=== PATIENT | female | born 1985 | race Caucasian/White ===

== ENCOUNTER 2017-12-26 00:01 | Outpatient (POV) | END 2017-12-26 17:00 | LOC: OUTPT 00:01 | PROVIDERS: ATTEND Otolaryngology | DX: H66.90 Otitis media, unspecified, unspecified ear (principal) ==

== ENCOUNTER 2017-12-27 09:59 | Outpatient (CLI) ==
--- NOTE | 2017-12-27 11:54 | DI ---
EXAM: Three views of the paranasal sinuses HISTORY: Chronic sinusitis. COMPARISON: CT sinus 12/27/2017 same day FINDINGS: Nasal septum is approximately midline. There is questionable thickening of the mucosa in t he bilateral maxillary sinuses. The frontal sinuses appear clear. The osseous structures are unrema rkable. IMPRESSION: Questionable maxillary sinus disease.
--- NOTE | 2017-12-27 11:55 | CT ---
Exam: CT of the sinuses without intravenous contrast. Comparison: None available. Reason for exam: Chronic sinusitis. FINDINGS: No displaced facial fractures are seen. No inflammatory changes are seen in the intracona l or extraconal spaces. The imaged portions of the calvarium appear intact without depressed fractur e. There is mucosal thickening in both maxillary sinuses. There is mild mucosal thickening in the e thmoid sinuses. The frontal sinuses and mastoid air cells are normally pneumatized. Impression: Mucosal thickening with inflammatory changes in both maxillary sinuses. Mild mucosal thickening is s een in the ethmoid sinuses. Imaging findings are most consistent with chronic sinus disease.
== END 2017-12-27 10:00 | disposition home or self-care (01) ==
LOC: RAD 09:59
PROVIDERS: ATTEND Otolaryngology
DX: J32.9 Chronic sinusitis, unspecified (principal)

== ENCOUNTER 2018-01-10 09:58 | Emergency (ER) ==
[2018-01-10 10:02] VITALS: BP 126/77; TEMP 99.1; BMI 32.5
--- NOTE | 2018-01-10 11:42 | ED.PDOC ---
General ED Provider: Dr. DOT BARAKAT Chief Complaint: Headache Stated Complaint: States has been bothered with sinus congestion and sore throat for past week and saw PCP for sinusitis several weeks ago. Was prescribed Augmentin for 10 days. Recently has taken OTC cough and cold medication 2 nights ago and yesterday felt very strange all day, feeling out of it /Developed headache yesterday evening and feels severe pressure sensation. No LOC, visual problems or emesis. Has ringing in ears. Time Seen by Physician: 11:25 Mode of Arrival: Walk-In Information Source: Patient Exam Limitations: No limitations Primary Care Provider: ARNEL SALCEDO Nursing and Triage Documentation Reviewed and Agree: Yes Reviewed sepsis parameters & appropriate labs ordered?: Yes System Inflammatory Response Syndrome: Not Applicable Sepsis Protocol: For patient's 13 years and over: Temp is 96.8 and below OR 101 and greater Pulse >90 BPM Resp >20/minute Acutely Altered Mental Status Are patient's symptoms suggestive of a new infection, such as: -Pneumonia -Skin, Soft Tissue -Endocarditis -UTI -Bone, Joint Infection -Implantable Device -Acute Abdominal Infection -Wound Infection -Meningitis -Blood Stream Catheter Infection -Unknown System Inflammatory Response Syndrome: Not Applicable Neurological Complaint Exam - Headache Complaint/Exam Onset: Gradual Duration: 24 hrs Symptoms Are: Still present Timing: Constant Episodes Lasting: Hours Worst Headache Ever: Yes Initial Severity: Moderate Current Severity: Severe Location: Diffuse, Right, Left, Frontal, Temporal, Occipital Character: Reports: Throbbing, Pressure, Migraine Aggravating: Reports: Position change, Bright lights Alleviating: Reports: Position change Associated Signs and Symptoms: Reports: Dizziness, Nausea, Sinus pressure Related Surgical History: Reports: None SAH Risk Factors: Reports: None Meningitis Risk Factors: Reports: None SDH Risk Factors: Reports: None Normal Head CT Within Last 12 Months: No Sinus Tenderness: Present: Maxillary, Frontal TMJ Tenderness: Present: None ROM Limited In: No Limitiations Focal Weakness: Present: None Focal Sensory Loss: Present: None Gait: Normal Nystagmus Present: No Gag Reflex Present: No Differential Diagnoses: Migraine, Subarachnoid Hemorrhage, Tension Headache, Viral Syndrome Review of Systems - Review Of Systems Constitutional: Reports: No symptoms Eyes: Reports: No symptoms Ears, Nose, Mouth, Throat: Reports: Ear pain (EAR FULLNESS), Throat pain (EAR AND HEAD FULLNESS) Respiratory: Reports: No symptoms, Cough Cardiac: Reports: No symptoms GI: Reports: No symptoms : Reports: No symptoms Musculoskeletal: Reports: No symptoms Skin: Reports: No symptoms Neurological: Reports: No symptoms Endocrine: Reports: No symptoms Hematologic/Lymphatic: Reports: No symptoms All Other Systems: Reviewed and Negative Past Medical History - Past Medical History Endocrine: Reports: None Cardiovascular: Reports: None Respiratory: Reports: None Hematological: Reports: None Gastrointestinal: Reports: None Genitourinary: Reports: None Neuro/Psych: Reports: None Musculoskeletal: Reports: None Cancer: Reports: None Last Menstrual Period: 11/29/17 PATIENT HAS IRREGULAR PERIODS - Surgical History General Surgical History: Reports: None - Family History Family History: Reports: None - Social History Smoking Status: Never smoker Hx Substance Use: No Alcohol Screening: None - Immunizations Tetanus Shot up to Date: Yes Physical Exam - Physical Exam Appearance: Ill-appearing Ill-appearing: Mild Pain Distress: Moderate Eyes: GAUDENCIO, EOMI, Conjunctiva clear ENT: Ears normal, Nose normal, Oropharynx normal (MILD ERYTHREMA), Erythema Neck: Supple (SOFT, NO NUCHAL RIGIDITY) Respiratory: Airway patent, Breath sounds clear Cardiovascular: RRR, Pulses normal, No rub, No murmur GI/: Soft, Nontender, No masses, Bowel sounds normal Musculoskeletal: Normal strength, ROM intact, No edema Skin: Warm, Dry, Normal color Neurological: Sensation intact, Motor intact, Alert, Oriented Psychiatric: Affect appropriate, Mood appropriate Re-Evaluation - Re-Evaluation Time of Re-Evaluation: 12:15 Status: Improved Vital Signs Stable: Yes Pain Level: 5/10 Appearance: NAD Lungs: Clear Skin: Warm and Dry Neuro: Other (Neck soft supple; no nuchal rigidity/ neg kernig's) CV: RRR Additional Comments: Lab/imaging reviewed. - Re-Evaluation Time of Re-Evaluation: 15:05 (Has been resting. Feeling better until sitting up then has recurrent CENTENO, dizziness, nausea and visual hazziness) Vital Signs Stable: Yes Appearance: NAD Skin: Warm and Dry Neuro: Alert and Oriented X3 CV: Other (Neck soft supple; neg nuchal tightness;/ordering IV Promethazine, CT angiogram to R/O vascular abnormality) Critical Care Note - Critical Care Note Total Time (mins): 0 Course - Course Hematology/Chemistry: 01/10/18 12:10 01/10/18 12:10 Orders, Labs, Meds: Lab Review 01/10/18 01/10/18 01/10/18 12:00 12:10 12:10 WBC 7.70 RBC 4.14 L Hgb 13.9 Hct 39.4 MCV 95.2 MCH 33.6 H MCHC 35.3 RDW Coeff of Gee 11.8 Plt Count 241 Immature Gran % (Auto) 0.3 Neut % (Auto) 76.8 Lymph % (Auto) 18.7 Parke % (Auto) 3.4 Eos % (Auto) 0.3 Baso % (Auto) 0.5 Immature Gran # (Auto) 0.0 Neut # (Auto) 5.9 Lymph # (Auto) 1.4 Parke # (Auto) 0.3 L Eos # (Auto) 0.0 Baso # (Auto) 0.0 ESR 7 Sodium 140 Potassium 3.9 Chloride 111 H Carbon Dioxide 21 Anion Gap 11.9 BUN 11 Creatinine 0.81 Estimated GFR (MDRD) 81.00 BUN/Creatinine Ratio 13.58 Glucose 95 Lactic Acid Calcium 9.6 Total Bilirubin 1.0 AST 15 ALT 16 Alkaline Phosphatase 66 Total Protein 7.5 Albumin 3.9 Globulin 3.6 Albumin/Globulin Ratio 1.08 Serum , Qual Influ A Molecular Assay Negative by naat Influ B Molecular Assay Negative by naat 01/10/18 01/10/18 12:10 12:10 WBC RBC Hgb Hct MCV MCH MCHC RDW Coeff of Gee Plt Count Immature Gran % (Auto) Neut % (Auto) Lymph % (Auto) Parke % (Auto) Eos % (Auto) Baso % (Auto) Immature Gran # (Auto) Neut # (Auto) Lymph # (Auto) Parke # (Auto) Eos # (Auto) Baso # (Auto) ESR Sodium Potassium Chloride Carbon Dioxide Anion Gap BUN Creatinine Estimated GFR (MDRD) BUN/Creatinine Ratio Glucose Lactic Acid 6.3 Calcium Total Bilirubin AST ALT Alkaline Phosphatase Total Protein Albumin Globulin Albumin/Globulin Ratio Serum , Qual Negative Influ A Molecular Assay Influ B Molecular Assay Orders Category Date Time Status NPO REMINDER: IMAGING ONCE CARE 01/10/18 15:26 Completed IV [ED IV/MEDIPORT/POWERPORT] .ONCE EMERGENCY 01/10/18 11:55 Active CBC W/ AUTO DIFF Stat LAB 01/10/18 12:10 Completed CMP [COMPREHENSIVE METABOLIC PANEL] Stat LAB 01/10/18 12:10 Completed ESR Stat LAB 01/10/18 12:10 Completed FLU A & B MOLECULAR [FLU A/B MOLECULAR] Stat LAB 01/10/18 12:00 Completed HCG QUALITATIVE [SERUM ] Stat LAB 01/10/18 12:10 Completed LACTIC ACID Stat LAB 01/10/18 12:10 Completed RAPID STREP SCREEN [MOLECULAR GROUP A STREP] Stat LAB 01/10/18 12:00 Completed 0.9 % Sodium Chloride [Saline Flush] MEDS 01/10/18 11:51 Active 1 syr IVF PRN PRN Dexamethasone 4 mg/ml Inj [Decadron 4 mg/ml Sdv] MEDS 01/10/18 13:44 Discontinued 4 mg IVP ONCE STA Hydromorphone HCl [Dilaudid 1 mg/ml Syringe] MEDS 01/10/18 12:01 Discontinued 1 mg IVP ONCE STA Hydromorphone HCl [Dilaudid 1 mg/ml Syringe] MEDS 01/10/18 13:45 Discontinued 1 mg IVP ONCE STA Levofloxacin [Levaquin] MEDS 01/10/18 16:40 Stat 500 mg PO ONCE STA Ondansetron HCl/Pf [Zofran 4 mg/2 ml] MEDS 01/10/18 11:56 Discontinued 4 mg IVP ONCE STA Promethazine HCl [Phenergan 25 mg/ml Vial] MEDS 01/10/18 15:53 Discontinued 25 mg .ROUTE .STK-MED ONE Promethazine HCl [Phenergan 25 mg/ml Vial] 25 mg MEDS 01/10/18 15:20 Discontinued 0.9 % Sodium Chloride [Sodium Chloride] 50 ml IV ONCE Sodium Chloride 0.9% [Sodium Chloride] 1,000 ml MEDS 01/10/18 12:[address] HEAD W/O CONTRAST Stat RADS 01/10/18 11:[address] SINUSES W/O CONTRAST Stat RADS 01/10/18 11:56 Completed CTA ANGIO HEAD Stat RADS 01/10/18 15:24 Completed Medications Generic Name Dose Route Start Last Admin Trade Name Freq PRN Reason Stop Dose Admin Sodium Chloride 1 syr 01/10/18 11:51 01/10/18 14:17 Saline Flush IVF 1 syr PRN PRN Administration To flush IV Discontinued Medications Generic Name Dose Route Start Last Admin Trade Name Freq PRN Reason Stop Dose Admin Dexamethasone Sodium Phosphate 4 mg 01/10/18 13:44 01/10/18 14:17 Decadron 4 Mg/Ml Sdv IVP 01/10/18 13:45 4 mg ONCE STA Administration Hydromorphone HCl 1 mg 01/10/18 12:01 01/10/18 12:27 Dilaudid 1 Mg/Ml Syringe IVP 01/10/18 12:02 1 mg ONCE STA Administration Hydromorphone HCl 1 mg 01/10/18 13:45 01/10/18 14:17 Dilaudid 1 Mg/Ml Syringe IVP 01/10/18 13:46 1 mg ONCE STA Administration Sodium Chloride 1,000 mls @ 500 mls/hr 01/10/18 12:35 01/10/18 12:58 Sodium Chloride IV 01/10/18 14:34 500 mls/hr BOLUS STA Administration Promethazine HCl 25 mg/ Sodium 51 mls @ 75 mls/hr 01/10/18 15:20 01/10/18 16: 00 Chloride IV 01/10/18 16:00 75 mls/hr ONCE STA Administration Levofloxacin 500 mg 01/10/18 16:40 Levaquin PO 01/10/18 16:41 ONCE STA Ondansetron HCl 4 mg 01/10/18 11:56 01/10/18 12:27 Zofran 4 Mg/2 Ml IVP 01/10/18 11:57 4 mg ONCE STA Administration Vital Signs: Temp Pulse Resp BP Pulse Ox 01/10/18 09:58 99.1 F 82 18 126/77 99 Departure - Departure Time of Disposition: 16:40 Disposition: HOME SELF-CARE Discharge Problem: Acute sinusitis treated with antibiotics in the past 60 days, Head pain cephalgia Discharge Problem: (Ruled Out): Acute sinusitis with coexisting condition requiring prophylactic treatment Instructions: Acute Headache (ED), Sinusitis (ED) Condition: Good Pt referred to PMD for follow-up: Yes (1 week ) IPMP verified?: No Prescriptions: Hydrocodone Bit/Acetaminophen [[place] 5-325] 1 each PO Q4HR PRN #20 tablet PRN Reason: Severe headache Levofloxacin [Levaquin] 500 mg PO DAILY #7 tablet Ondansetron [Zofran Odt] 4 mg PO Q8H #10 tab.rapdis Prednisone 10 mg PO DAILYWM #20 tablet Allergies/Adverse Reactions: Allergies No Known Allergies Allergy (Unverified 01/10/18 10:02) Home Medications: Ambulatory Orders Hydrocodone Bit/Acetaminophen [[place] 5-325] 1 each PO Q4HR PRN #20 tablet Levofloxacin [Levaquin] 500 mg PO DAILY #7 tablet 01/10/18 Ondansetron [Zofran Odt] 4 mg PO Q8H #10 tab.rapdis 01/10/18 Prednisone 10 mg PO DAILYWM #20 tablet 01/10/18 Disposition Discussed With: Patient
[2018-01-10] MEDS ORDERED: ZOFRAN 4 MG/2 ML IVP STA (11:56)
[2018-01-10] MEDS ORDERED: DILAUDID 1 MG/ML SYRINGE IVP STA ×2 (12:01→13:45)
[2018-01-10] MEDS ORDERED: SODIUM CHLORIDE 1,000 ML IV STA (12:35)
--- NOTE | 2018-01-10 13:10 | CT ---
EXAM: CT of the sinuses without contrast History: Facial pain. Comparison: Head CT 01/10/2018, sinus CT 12/27/2017 Technique: Multiplanar CT images through the sinuses were obtained without the administration of IV contrast Findings: No acute fracture or dislocation. Mastoid air cells are clear. Orbits are intact. Surrou nding soft tissues demonstrate no acute findings. The visualized intracranial contents demonstrate n o acute abnormality. Improved mucosal thickening of the bilateral maxillary sinuses which is now only mild. There is mild to moderate mucosal thickening of the ethmoid air cells which has slightly worsened compared to the prior study. There is also mild mucosal thickening of the frontal sinuses. Nasal septum is undulati ng but bowed more to the right. The right infundibulum is partially occluded with mucus. Impression: 1. Improving bilateral maxillary sinus disease. 2. Slight interval worsening of the ethmoid sinus disease.
--- NOTE | 2018-01-10 13:14 | CT ---
EXAM: CT head without contrast. HISTORY: Severe headache. COMPARISON: None available. TECHNIQUE: Multiple axial images of the brain were obtained from the skull base through the vertex w ithout intravenous contrast. Multiplanar reformats were provided. FINDINGS: There is no intracranial hemorrhage or extraaxial collection. The garcia-white differentiat ion is maintained without evidence for acute large vascular territory infarction. The cortical sulci and basal cisterns are well visualized. There is no hydrocephalus, mass effect, or midline shift. Ethmoid sinus mucosal thickening is incompletely imaged. Otherwise, the paranasal sinuses and mastoi d air cells are clear. The calvarium is intact. IMPRESSION: No acute intracranial abnormality.
[2018-01-10] MEDS ORDERED: DECADRON 4 MG/ML SDV IVP STA (13:44)
[2018-01-10] MEDS ORDERED: PHENERGAN 25 MG/ML VIAL 25 MG in SODIUM CHLORIDE 50 ML IV STA (15:20)
[2018-01-10] MEDS ORDERED: PHENERGAN 25 MG/ML VIAL ONE (15:53)
--- NOTE | 2018-01-10 16:24 | CT ---
EXAM: CT angiogram of the head with and without contrast HISTORY: Persistent headaches, visual haziness TECHNIQUE: Imaging of the head was performed before and after the intravenous administration of cont rast. 2 mm thin axial images and coronal and sagittal reconstructions and rotated 3-D reconstruction s were provided for interpretation. Comparison CT scan of the head without contrast dated 01/10/2018. FINDINGS: There is normal delineation of the cavernous carotid artery and supraclinoid ICA. The M1 segments of the middle cerebral arteries appear to be normal caliber. There is a normal appearance o f the distal branches of the middle cerebral arteries. The A1 segments are seen bilaterally and appe ar to be normal caliber. The A2 segments and distal branches of the anterior cerebral arteries appea r normal. The anterior communicating artery is not well seen and may be small in caliber. The left vertebral artery is dominant. The distal vertebral arteries, vertebral basilar junction anurag ear normal. The basilar artery and tip of the basilar artery appear normal caliber. There is a norm al appearance of the posterior cerebral arteries bilaterally. There is a normal enhancement of the the superior sagittal sinus, transverse sinus and sigmoid sinus. There is normal enhancement of the straight sinus. The lateral ventricles and cortical sulci are normal. No acute hemorrhages are seen. There is no ma ss effect. There are no extraaxial collections. The basal cisterns are patent. There is mild mucosa l thickening seen within the left maxillary sinus and ethmoid air cells. The remainder of the parana radha sinuses and mastoid air cells are clear. The calvarium appears normal. IMPRESSION: There is no evidence of intracranial angioma or vascular malformation. No significant stenosis seen within the proximal intracranial vasculature. Mild chronic sinusitis.
[2018-01-10] MEDS ORDERED: LEVAQUIN PO STA (16:40)
== END 2018-01-10 17:42 | disposition home or self-care (01) ==
LOC: ED 09:58
DX: J01.90 Acute sinusitis, unspecified (principal); R51 Headache
CPT/HCPCS: 36415; 80053; 83605; 84703; 85025; 85651; 87502; 87651; 96361; 96365; 96375; 96376; 99283